=== PATIENT | male | born 1940 | race Caucasian/White ===

== ENCOUNTER → 2017-07-03 | Outpatient (CLI) | payer MEDICARE, BC ==
--- NOTE | 2017-07-03 16:58 | US ---
EXAMINATION TYPE: US scrotum with doppler. Grayscale and color Doppler Duplex imaging performed of t he scrotum. DATE OF EXAM: 07/03/2017 COMPARISON: NONE CLINICAL HISTORY: M50.812 Left sided tesicular pain. EXAM MEASUREMENTS: TESTICLES: Right Testicle: 4.3 x 1.9 x 2.5 cm Left Testicle: 4.0 x 2.2 x 3.1 cm EPIDIDYMIS HEAD: Right Epididymis: 1.1 cm Left Epididymis: 1.0 cm Doppler performed to assess for testicular vascularity; good bilateral color flow and waveforms are s een. There is no evidence of testicular torsion. Presence of hydroceles: No Presence of varicoceles: Yes, bilaterally. Cystic area visualized in right epididymis measuring 0.3 x 0.5 x 0.4 cm IMPRESSION: There are small bilateral varicoceles. No testicular torsion or mass. 4 mm right epididym al cyst. No free fluid.
== END | disposition home or self-care (01) ==
LOC: RADUSWWP 15:54
PROVIDERS: ATTEND Surgery
DX: N50.3 Cyst of epididymis (principal); I86.1 Scrotal varices
CPT/HCPCS: 76870; 93975

== ENCOUNTER 2017-07-14 13:47 | Day surgery (SDC) | payer MEDICARE, BC ==
[2017-07-07 09:11] VITALS: BMI 31.8
[~2017-07-14 13:47] MED LIST: CLINDAMYCIN 900 MG in DEXTROSE 5% IN WATER 50 ML IVPB ONE; DEXAMETHASONE SOD PHOSPHATE 10 MG/ML 1 ML VIAL IV ONE; HEPARIN SODIUM,PORCINE 5,000 UNIT/ML 1 ML VIAL SQ ONE; LEVOFLOXACIN 500MG-D5W PMX 500 MG in DEXTROSE/WATER 1 100ML.BAG IVPB ONE; MIDAZOLAM 2 MG/2 ML VIAL IV PRN; MORPHINE SULFATE 4 MG/ML SYRINGE IV PRN; ONDANSETRON 4 MG/2 ML VIAL IVP ONE
[2017-07-14] MEDS ORDERED: LIDOCAINE 1% 20 ML VIAL (10MG/ML) FOR IV START INTRADERMA ONE (14:25)
[2017-07-14] MEDS: LACTATED RINGERS 1,000 ML IV SCH (14:25)
[2017-07-14 14:26] LABS: Glucose,Whole Blood 183 mg/dL (75-99)
[2017-07-14 14:42] LABS: Anion Gap 10 mmol/L; Blood Urea Nitrogen 26 mg/dL (9-20); Calcium 10.2 mg/dL (8.4-10.2); Carbon Dioxide 29 mmol/L (22-30); Chloride 101 mmol/L (98-107); Glucose 200 mg/dL (74-99); Potassium 4.3 mmol/L (3.5-5.1); Sodium 140 mmol/L (137-145)
[2017-07-14] MEDS ORDERED: HEPARIN SODIUM,PORCINE 5,000 UNIT/ML 1 ML VIAL SQ ONE (15:25)
[2017-07-14] MEDS ORDERED: MIDAZOLAM 2 MG/2 ML VIAL ONE (15:55)
[2017-07-14] MEDS ORDERED: SUCCINYLCHOLINE CHLORIDE 100 MG/5 ML SYR IV ONE (15:55)
[2017-07-14] MEDS ORDERED: ePHEDrine SULFATE/0.9% NACL/PF 50 MG/5 ML SYRINGE IV ONE (15:55)
[2017-07-14] MEDS ORDERED: GLYCOPYRROLATE 0.2 MG/ML 2 ML VIAL ONE (15:55)
[2017-07-14] MEDS ORDERED: NEOSTIGMINE 1 MG/ML 10 ML VIAL ONE (15:55)
[2017-07-14] MEDS ORDERED: fentaNYL (PF) 50 MCG/ML 2 ML AMP ONE (15:55)
[2017-07-14] MEDS ORDERED: PROPOFOL 10 MG/ML 20 ML VIAL IV ONE (15:55)
[2017-07-14] MEDS ORDERED: LIDOCAINE 1% INJ 10MG/ML (20 ML MDV) ONE (15:55)
[2017-07-14] MEDS ORDERED: ROCURONIUM BROMIDE 10 MG/ML 10 ML VIAL IV ONE (15:55)
[2017-07-14] MEDS ORDERED: PHENYLEPHRINE-0.9% NACL SYG 1 MG/10 ML SYRINGE ONE (15:55)
[2017-07-14] MEDS ORDERED: HYDROmorphone (PF) 1 MG/ML ONE (15:55)
[2017-07-14] MEDS ORDERED: LIDOCAINE 1% INJ 10MG/ML (20 ML MDV) SQ ONE (16:23)
[2017-07-14] MEDS ORDERED: LACTATED RINGERS 1,000 ML IV ONE (17:33)
[2017-07-14] MEDS ORDERED: ONDANSETRON 4 MG/2 ML VIAL IVP PRN (18:48)
[2017-07-14] MEDS ORDERED: NALOXONE 0.4 MG/ML 1 ML VIAL IV PRN (18:48)
[2017-07-14] MEDS ORDERED: HYDROmorphone 2 MG/ML 1 ML SYRINGE IV PRN (18:48)
--- NOTE | 2017-07-14 18:48 | P.OP ---
Date of Procedure: 07/14/17 Preoperative Diagnosis: Incarcerated left inguinal hernia with colon in the hernia Postoperative Diagnosis: same Procedure(s) Performed: Left groin exploration and reduction of incarcerated left inguinal hernia repair of hernia with mesh and high ligation of the sac Anesthesia: MARIO Surgeon: Ivette Leija Estimated Blood Loss (ml): 40 IV fluids (ml): 1,500 Urine output (ml): 400 Pathology: other (hernia sac) Condition: stable Disposition: PACU Indications for Procedure: 76-year-old gentleman with incarcerated left inguinal hernia, difficulty with bowel movements known incarcerated colon in hernia sac Operative Findings: Incarcerated colon and left inguinal hernia sac, defect in floor of inguinal canal, lipoma of cord Description of Procedure: The patient is a 76-year-old white male who presented with an incarcerated left inguinal hernia. He is having difficulty with bowel movements and an attempted colonoscopy revealed that the colon was indeed present in the scrotum. The patient presents for left inguinal hernia reduction and repair. The patient was taken to the operating room and following induction of general anesthesia the left groin was prepped and draped in a sterile fashion. Incision was made between the anterior superior iliac spine and the pubic tubercle. This was carried through the skin and subcutaneous tissue. Several vessels were identified these were ligated and divided. This was carried down to the aponeurosis of the external oblique. However there was a very large protuberant sac extruding from the extranal ring, and it was necessary to be dissected free to the external ring. A large sac was present, and this was dissected free and cord structures were identified as well at this site. The sac was dissected free and opened; colon was present in the sac. There is a question as to whether the lateral wall of the sac was actually colon, and possibly this was a sliding hernia. It is believed that this is most likely sigmoid colon. This was seperated from the adhesions in the sac and reduced and the sac closed. The sac was excised. At this point the external oblique was opened. The floor of the canal was clearly identified. Lipomatous structure was noted to be present along the cord and this was removed. The cord structures were encircled using a Luz drain. The sac had contracted up to the area of the internal ring. The floor of the inguinal canal was basically nonexistent. It was repaired using a Prolene suture bringing the shelving edge of the aponeurosis of the external oblique to the conjoined tendon. An onlay mesh was then placed and secured using a Prolene suture. This was used to tighten the area of the internal ring as well. After this had been accomplished the cord structures were returned to the inguinal canal. The aponeurosis of the external oblique was closed using a Vicryl suture. One percent lidocaine was used to anesthetize this area. The subcutaneous tissues were closed using a Vicryl suture. The skin was closed using david. Lidocaine Was Used To Anesthetize the Area of the Skin. Patient Tolerated the Procedure in Stable Condition. All Instrument and Sponge Counts Were Correct at the End of the Case.
[2017-07-14 18:56] VITALS: RESP 16
[2017-07-14] MEDS: METOPROLOL TARTRATE 25 MG TAB PO SCH (21:00)
[2017-07-14] MEDS ORDERED: ATORVASTATIN 20 MG TAB PO SCH (21:00)
[2017-07-14] MEDS: DEXTROSE 5%-0.45% NACL 1,000 ML IV SCH (21:00)
[2017-07-14] MEDS: HYDROcodone/APAP 5-325MG 1 EACH TAB PO PRN (21:56)
[2017-07-14] MEDS: HEPARIN SODIUM,PORCINE 5,000 UNIT/ML 1 ML VIAL SQ SCH (23:29)
[2017-07-15] MEDS: HYDROcodone/APAP 5-325MG 1 EACH TAB PO PRN ×3 (02:40→12:47)
[2017-07-15] MEDS: LACTATED RINGERS 1,000 ML IV SCH (03:38)
[2017-07-15] MEDS: DEXTROSE 5%-0.45% NACL 1,000 ML IV SCH (03:39)
[2017-07-15 07:30] LABS: Glucose,Whole Blood 277 mg/dL (75-99)
[2017-07-15] MEDS ORDERED: PANTOPRAZOLE 40 MG TABLET PO SCH (07:30)
[2017-07-15 07:46] LABS: Basophils % (A) 0 %; Eosinophils % (A) 1 %; HCT 37.3 % (39.0-53.0); HGB 11.8 gm/dL (13.0-17.5); Lymphocytes # (A) 0.9 k/uL (1.0-4.8); Lymphocytes % (A) 16 %; MCH 30.1 pg (25.0-35.0); MCHC 31.6 g/dL (31.0-37.0); MCV 95.4 fL (80.0-100.0); Mean Platelet Volume 6.6; Monocytes # (A) 0.5 k/uL (0-1.0); Monocytes % (A) 8 %; Neutrophils # (A) 4.3 k/uL (1.3-7.7); Neutrophils % (A) 73 %; Platelet Count 170 k/uL (150-450); RBC 3.91 m/uL (4.30-5.90); RDW 12.9 % (11.5-15.5); WBC 5.9 k/uL (3.8-10.6)
[2017-07-15] MEDS: METOPROLOL TARTRATE 25 MG TAB PO SCH (07:52)
[2017-07-15] MEDS: HEPARIN SODIUM,PORCINE 5,000 UNIT/ML 1 ML VIAL SQ SCH (07:52)
[2017-07-15 08:01] VITALS: BP 104/60; PULSE 78; TEMP 98.7
[2017-07-15] MEDS ORDERED: glipiZIDE 10 MG TAB PO SCH (08:15)
[2017-07-15] MEDS ORDERED: LINAGLIPTIN 5 MG TABLET PO SCH (09:00)
[2017-07-15] MEDS ORDERED: POTASSIUM CHLORIDE ER 10 MEQ TAB.ER.PRT PO SCH (09:00)
[2017-07-15] MEDS ORDERED: metFORMIN 500 MG TAB PO SCH (09:00)
--- NOTE | 2017-07-15 10:54 | P.DS ---
Providers Expected date of discharge: 07/15/17 Attending physician: Ivette Leija Consults: 07/14/17 18:50 Consult Physician Routine Consulting Provider: Leonarda Danielle Consult Reason/Comments: medical managment, diabetic, heart disease Do you want consulting provider notified?: Yes 07/14/17 18:51 Consult Physician Routine Consulting Provider: Bouchra Brown Consult Reason/Comments: heart disease Do you want consulting provider notified?: Yes Primary care physician: [facility] Course: 76-year-old male who presented on the day of admission to undergo an elective left groin exploration and reduction of incarcerated left inguinal hernia repair with mesh. Patient was being treated for incarcerated left inguinal hernia with colon in the hernia. No postop events. On the day of discharge patient was up ambulatory on the unit afebrile urinating no difficulty no scrotal edema surgical incision dressing dry pain medication effective for pain control patient was felt to be hemodynamically stable and appropriate proceed with a discharge. Impression discharge diagnoses Present on admission incarcerated left inguinal hernia Constipation Hypertension essential Type 2 diabetes non-insulin Postop July 14 left groin exploration and reduction of incarcerated left inguinal hernia repair of hernia with mesh and high ligation of the sac for incarcerated left inguinal hernia The above impression and plan of care have been discussed and directed by signing physician. Lily Marcus nurse practitioner acting as scribe for signing physician. Plan - Discharge Summary New Discharge Prescriptions: New HYDROcodone/APAP 5-325MG [Jbphh 5-325] 1 each PO Q4HR PRN #30 tab PRN Reason: Moderate Pain Docusate [Colace] 100 mg PO BID #60 capsule Continue Pioglitazone [Actos] 45 mg PO DAILY Aspirin 81 mg PO DAILY Furosemide [Lasix] 40 mg PO DAILY glipiZIDE [Glucotrol] 20 mg PO AC-BID Atorvastatin [Lipitor] 20 mg PO HS Potassium Chloride [Klor-Con 10] 10 meq PO DAILY sitaGLIPtin [Januvia] 100 mg PO DAILY metFORMIN HCL [Glucophage] 500 mg PO BID Metoprolol Tartrate [Lopressor] 25 mg PO BID Discharge Medication List Aspirin 81 mg PO DAILY 02/01/16 [History] Atorvastatin [Lipitor] 20 mg PO HS 02/01/16 [History] Furosemide [Lasix] 40 mg PO DAILY 02/01/16 [History] Pioglitazone [Actos] 45 mg PO DAILY 02/01/16 [History] Potassium Chloride [Klor-Con 10] 10 meq PO DAILY 02/01/16 [History] glipiZIDE [Glucotrol] 20 mg PO AC-BID 02/01/16 [History] sitaGLIPtin [Januvia] 100 mg PO DAILY 07/07/17 [History] Metoprolol Tartrate [Lopressor] 25 mg PO BID 07/14/17 [History] metFORMIN HCL [Glucophage] 500 mg PO BID 07/14/17 [History] Docusate [Colace] 100 mg PO BID #60 capsule 07/15/17 [Rx] HYDROcodone/APAP 5-325MG [Jbphh 5-325] 1 each PO Q4HR PRN #30 tab 07/15/17 [Rx] Follow up Appointment(s)/Referral(s): Ivette Leija MD [STAFF PHYSICIAN] - 07/24/17 12:30 pm Activity/Diet/Wound Care/Special Instructions: No tub bath for six weeks. Shower daily. No lifting over 4 pounds for the next 6 weeks. Wear scrotal support while up May use ice packs to site. No driving while taking narcotic for pain. Use [id number] stool softeners as needed do not remove the surgical dressing until seen in a follow-up visit with Dr. Novak Discharge Disposition: HOME SELF-CARE
[2017-07-15 12:12] LABS: Glucose,Whole Blood 335 mg/dL (75-99)
[2017-07-15] MEDS ORDERED: INSULIN ASPART 100 UNIT/ML 1 ML 10 ML VIAL SQ SCH (12:30)
--- NOTE | 2017-07-15 14:15 | P.PN ---
Subjective Progress Note Date: 07/15/17 Mr. Smith is a pleasant 76-year-old male past medical history significant for diabetes mellitus, dyslipidemia, abdominal aortic aneurysm repair 2016 and mild stable coronary artery disease. He follows with Dr. Brown in the office and underwent pre-opertaive evaluation 07/08. At that time he was deemed an acceptable risk for surgery with recommendations to continue atorvastatin and metoprolol even on the day of surgery. We have been asked to see him post-operatively today. He is seen sitting up in bed in no acute distress. He denies symptoms of chest pain, shortness of breath, dizziness, palpitations, nausea or vomiting. Surgery was performed as scheduled for an incarcerated umbilical hernia without incident or complication. Vital signs have been stable. Objective - Vital Signs Vital signs: Vital Signs Temp 98.7 F 07/15/17 07:00 Pulse 78 07/15/17 10:15 Resp 16 07/15/17 10:15 BP 104/60 07/15/17 07:00 Pulse Ox 95 07/15/17 07:00 Intake & Output 07/14/17 07/15/17 07/15/17 18:59 06:59 18:59 Intake Total 1856 800 400 Output Total 440 800 Balance 1416 0 400 Weight 106.594 kg Intake: IV 1856 Intake, IV Titration 800 Amount Dextrose 5%-0.45% NaCl 1, 800 000 ml @ 100 mls/hr IV . Q10H [facility], [facility] Rx#:[id number] Oral 400 Output: Urine 400 800 Estimated Blood Loss 40 Other: Voiding Method Toilet # Voids 2 - Exam Blood pressure 104/60 heart rate 78 afebrile GENERAL: Well-appearing, well-nourished and in no acute distress. NECK: Supple without JVD or thyromegaly. LUNGS: Breath sounds clear to auscultation bilaterally. Respiration equal and unlabored. No wheezes, rales or rhonchi. HEART: Regular rate and rhythm without murmurs, rubs or gallops. S1 and S2 heard. EXTREMITIES: Normal range of motion, no edema. No clubbing or cyanosis. Peripheral pulses intact and strong. - Labs CBC & Chem 7: 07/15/17 07:29 07/14/17 14:23 Labs: Abnormal Lab Results - Last 24 Hours (Table) 07/14/17 07/14/1707/15/18 Range/Units 14:21 14:23 07:02 RBC (4.30-5.90) m/uL Hgb (13.0-17.5) gm/dL Hct (39.0-53.0) % Lymphocytes # (1.0-4.8) k/uL BUN 26 H (9-20) mg/dL Glucose 200 H (74-99) mg/dL POC Glucose (mg/dL) 183 H 277 H (75-99) mg/dL 07/15/17 07/15/17 Range/Units 07:29 12:08 RBC 3.91 L (4.30-5.90) m/uL Hgb 11.8 L (13.0-17.5) gm/dL Hct 37.3 L (39.0-53.0) % Lymphocytes # 0.9 L (1.0-4.8) k/uL BUN (9-20) mg/dL Glucose (74-99) mg/dL POC Glucose (mg/dL) 335 H (75-99) mg/dL Assessment and Plan Assessment: ASSESSMENT 1. Left inguinal incarcerated hernia repair with mesh post-operative day #1 2. History of mild stable CAD 3. Dyslipidemia 4. History of ascending aorta aneurysm repair PLAN Continue with simvastatin, metoprolol, potassium and lasix. Aspirin should be initiated as soon as is possible per surgery. Follow-up with Dr. Brown in 2-3 months as was established pre-operatively. Thank you kindly for allowing us to participate in the care of Mr. Smith. Nurse Practitioner note has been reviewed, I agree with a documented findings and plan of care. Patient was seen and examined.
[2017-07-16] MEDS ORDERED: PIOGLITAZONE 45 MG TAB PO SCH (09:00)
[2017-07-16] MEDS ORDERED: ASPIRIN 81 MG PO SCH (09:00)
[2017-07-16] MEDS ORDERED: FUROSEMIDE 40 MG TAB PO SCH (09:00)
== END 2017-07-15 12:55 | disposition home or self-care (01) ==
LOC: OR 13:47 → 3SUR 18:41 → OR 07-15 12:55
PROVIDERS: ATTEND Surgery
DX: K40.30 Unilateral inguinal hernia, with obstruction, without gangrene, not specified as recurrent (principal); D17.6 Benign lipomatous neoplasm of spermatic cord; K59.00 Constipation, unspecified; E11.9 Type 2 diabetes mellitus without complications; I10 Essential (primary) hypertension; E78.5 Hyperlipidemia, unspecified; E78.00 Pure hypercholesterolemia, unspecified; Z88.1 Allergy status to other antibiotic agents; Z79.82 Long term (current) use of aspirin; Z79.899 Other long term (current) drug therapy; Z79.84 Long term (current) use of oral hypoglycemic drugs; Z85.46 Personal history of malignant neoplasm of prostate; M19.90 Unspecified osteoarthritis, unspecified site; Z95.3 Presence of xenogenic heart valve; Z95.828 Presence of other vascular implants and grafts
CPT/HCPCS: 49507; 94760; 93005; 88304; 80048; 85025; 88302; 83036; C1781; J2250; J1644 ×2; J1100; J2710; J2405; J1956; J2001; J3010; J1170; J2370; J0330; J2704

== ENCOUNTER 2017-09-22 06:39 | Day surgery (SDC) | payer MEDICARE, BC ==
[2017-09-21 08:12] VITALS: BMI 31.8
[~2017-09-22 06:39] MED LIST changes: -CLINDAMYCIN 900 MG in DEXTROSE 5% IN WATER 50 ML IVPB ONE; -DEXAMETHASONE SOD PHOSPHATE 10 MG/ML 1 ML VIAL IV ONE; -HEPARIN SODIUM,PORCINE 5,000 UNIT/ML 1 ML VIAL SQ ONE; +LACTATED RINGERS 1,000 ML IV SCH; -LEVOFLOXACIN 500MG-D5W PMX 500 MG in DEXTROSE/WATER 1 100ML.BAG IVPB ONE; -MIDAZOLAM 2 MG/2 ML VIAL IV PRN; -MORPHINE SULFATE 4 MG/ML SYRINGE IV PRN; -ONDANSETRON 4 MG/2 ML VIAL IVP ONE
[2017-09-22 07:02] LABS: Glucose,Whole Blood 220 mg/dL (75-99)
[2017-09-22 07:03] VITALS: RESP 18; TEMP 98.3
[2017-09-22] MEDS ORDERED: MIDAZOLAM 2 MG/2 ML VIAL ONE (07:46)
[2017-09-22] MEDS ORDERED: LIDOCAINE 1% INJ 10MG/ML (20 ML MDV) ONE (07:46)
[2017-09-22] MEDS ORDERED: PROPOFOL 10 MG/ML 20 ML VIAL IV ONE (07:46)
[2017-09-22] MEDS ORDERED: fentaNYL (PF) 50 MCG/ML 2 ML AMP ONE (07:46)
--- NOTE | 2017-09-22 08:24 | P.OP ---
Date of Procedure: 09/22/17 Preoperative Diagnosis: Screening colonoscopy, attempted colonoscopy in June unsuccessful secondary to colon in the hernia Postoperative Diagnosis: Polyps at 20 cm 1 removed with snare polypectomy and retrieved 1 removed with cold biopsy, internal hemorrhoids Procedure(s) Performed: Colonoscopy with polypectomy Anesthesia: MAC Surgeon: Ivette Leija Estimated Blood Loss (ml): 0 IV fluids (ml): 350 Pathology: other (2 polyps at 20 cm) Condition: stable Disposition: PACU Indications for Procedure: Screening colonoscopy, unsuccessful colonoscopy in June secondary to colon In a large hernia Operative Findings: Polyps 2 at 20 cm, internal hemorrhoids Description of Procedure: Patient was taken to the endoscopy suite and following sedation rectal exam was performed. Patient was noted to have good sphincter tone no masses. Colonoscope was passed through the anus into the rectum. Was passed through the sigmoid colon up to splenic flexure transverse colon hepatic flexure right colon to the area of the cecum. Circumferential observation mucosa did not reveal any lesions of concern in the cecum or right colon. No lesions of concern in the transverse colon or left colon. No lesions of concern in the sigmoid colon up to 20 cm. At 20 cm 2 small polypoid lesions were identified. One was removed with snare polypectomy and retrieved. The other was removed with cold biopsy. Following the scope was brought down to the rectum where it was retroflexed internal hemorrhoids identified. Approximately 6 minutes were taken to withdraw the scope from the cecum to the rectum Impression/plan: 1. 2 polypoid lesions at 20 cm await pathology 2. Conservative management of hemorrhoids
--- NOTE | 2017-09-22 08:25 | P.DS ---
Providers Attending physician: Ivette Leija Primary care physician: Venu Ledezma Plan - Discharge Summary New Discharge Prescriptions: No Action Pioglitazone [Actos] 45 mg PO W/SUPPER Aspirin 81 mg PO DAILY Furosemide [Lasix] 40 mg PO DAILY glipiZIDE [Glucotrol] 10 mg PO AC-BID Atorvastatin [Lipitor] 20 mg PO W/SUPPER Potassium Chloride [Klor-Con 10] 10 meq PO DAILY sitaGLIPtin [Januvia] 100 mg PO DAILY metFORMIN HCL [Glucophage] 500 mg PO BID Metoprolol Tartrate [Lopressor] 25 mg PO BID Discharge Medication List Aspirin 81 mg PO DAILY 02/01/16 [History] Atorvastatin [Lipitor] 20 mg PO W/SUPPER 02/01/16 [History] Furosemide [Lasix] 40 mg PO DAILY 02/01/16 [History] Pioglitazone [Actos] 45 mg PO W/SUPPER 02/01/16 [History] Potassium Chloride [Klor-Con 10] 10 meq PO DAILY 02/01/16 [History] glipiZIDE [Glucotrol] 10 mg PO AC-BID 02/01/16 [History] sitaGLIPtin [Januvia] 100 mg PO DAILY 07/07/17 [History] Metoprolol Tartrate [Lopressor] 25 mg PO BID 07/14/17 [History] metFORMIN HCL [Glucophage] 500 mg PO BID 07/14/17 [History] Activity/Diet/Wound Care/Special Instructions: Call Dr. Novak's office 1 week for results of pathology, if this is an adenomatous polyp repeat scope in 2-[address] Discharge Disposition: HOME SELF-CARE
[2017-09-22 08:31] LABS: Glucose,Whole Blood 209 mg/dL (75-99)
[2017-09-22 08:44] VITALS: BP 136/67; PULSE 62
== END 2017-09-22 09:05 | disposition home or self-care (01) ==
LOC: ORWHC2ENDO 06:39
PROVIDERS: ATTEND Surgery
DX: Z12.11 Encounter for screening for malignant neoplasm of colon (principal); K63.5 Polyp of colon; K64.8 Other hemorrhoids; Z88.1 Allergy status to other antibiotic agents; I25.10 Atherosclerotic heart disease of native coronary artery without angina pectoris; K57.30 Diverticulosis of large intestine without perforation or abscess without bleeding; I10 Essential (primary) hypertension; E78.5 Hyperlipidemia, unspecified; E11.9 Type 2 diabetes mellitus without complications; Z95.2 Presence of prosthetic heart valve; Z85.46 Personal history of malignant neoplasm of prostate; Z90.79 Acquired absence of other genital organ(s); Z79.84 Long term (current) use of oral hypoglycemic drugs; Z79.82 Long term (current) use of aspirin; Z79.899 Other long term (current) drug therapy; M19.90 Unspecified osteoarthritis, unspecified site
CPT/HCPCS: 88305; 45385; 45380; J2250; J2001; J3010; J2704